=== PATIENT | female | born 1995 | race Caucasian/White ===

== ENCOUNTER 2019-08-09 20:26 | Inpatient (IN) ==
[2019-08-09] MEDS ORDERED: OXYTOCIN 30 UNITS/500 ML BAG IV PRN (21:43)
[2019-08-09] MEDS ORDERED: PENICILLIN G POTASSIUM 3 MU in DEXTROSE 5% 100 ML IV PRN (21:43)
[2019-08-09] MEDS ORDERED: BETAMETH SOD PHOS/ACETATE IA 6 MG/ML IM STA (21:43)
[2019-08-09] MEDS ORDERED: PENICILLIN G POTASSIUM 6 MU in DEXTROSE 5% 250 ML IV STA (21:43)
[2019-08-09] MEDS ORDERED: LACTATED RINGER'S 1,000 ML IV PRN (21:43)
--- NOTE | 2019-08-09 22:03 | History & Physical Report ---
Date of Service August 09, 2019 Assessment & Plan (1) premature rupture of membranes (PPROM) delivered, current hospita lization: IV fluids, EFM/toco. GBS unknown, therefore start PCN. <37w gestation, give first dose of celestone. I discussed case with on-call pairer odds; he recommends transfer to a tertiary center, as he feels the baby would likely need to be transferred to a NICU after delivery. In an effort to avoid separation of baby and mom after delivery, will transfer to [place]. I discussed with MFM Dr Hickey and OB Dr Campbell at [facility]. Patient needs COVID rapid swab prior to [place] transfer, per [place] request. She screened negative for symptoms/exposure. Patient is agreeable. Consent discussed. History of Present Illness Chief Complaint: rupture of membranes Primary Care Provider: Renetta York MD 23yo @ 35 03/23 with large gush of water at 7pm tonight. No bleeding, not feeling contractions. + movement. complicated by: Rh negative (rec'd Rhogam at 28w visit 06/23/19), and anatomy scan concerning for amniotic band. She was referred to MFM at [facility] due to her insurance coverage, and found no amniotic band and normal anatomy. Recommendation was for a 32w growth ultrasound, and at that scan fetus was 17th %ile for size. No recent intercourse, feeling well other than leaking of fluid. No further complaints. Allergies Allergy/AdvReac Type Severity Reaction Status Date / Time Cephalosporins Allergy Hives Verified 08/09/19 20:36 Home Medications Home Medications Medication Instructions Recorded Confirmed Type prenat.vits,silvano,wqy-bdup-xhfrj 1 tab PO DAILY 01/26/19 08/09/19 History Patient History Medical History Hx of migraines Varicella vaccine Surgical History S/P tonsillectomy S/P wisdom tooth extraction Family History Grandmother (Maternal) Asthma Grandfather (Maternal) Diabetes Hypertension Heart disease Mother Hypertension Dyslipidemia Kidney stones Grandmother (Paternal) Lung cancer Social History Preferred Language: Swedish Communication Ability: Effective [place] [employer]merer Required: No Beliefs That Will Affect Care: None marital status: marital status details: Tee(24) [phone] Current Living Situation: Spouse Current Living Situation Comment: lives with spouse current occupational status: employed current occupation: Crisis counselor @ [employer] Other Information That Helps Us Care for You: No Feels Safe at Home: Yes Safety Concerns: Feels Safe At This Time Smoking Status: Never smoker Hx Alcohol Use: No Hx Substance Use: No Review of Systems All systems reviewed & are unremarkable except as noted in HPI & below Physical Exam Physical Exam: Sterile speculum exam: +nitrizine, +ferning, +valsalva. Neg pooling. Positive Amnisure. Sterile vaginal exam: /-2 FHT Cat 1 [place] rare ctx Limited bedside ultrasound: cephalic, limited amt of amniotic fluid, anterior placenta, + movement, +cardiac activity Constitutional: WD/WN, vitals as above Respiratory: normal respiratory effort, lungs clear to auscultation no respiratory distress Cardiovascular: Rate/Rhythm: regular rate and regular rhythm Gastrointestinal (Abdomen): Inspection/Auscultation: abdomen normal to inspection Percussion/Palpation: abdomen soft; abdomen nontender Gravid. No s/s chorio or abruption. Skin: no rashes, warm and dry Psychiatric: A+Ox3, euthymic affect Results & Data Vital Signs (Past 12 Hours) Vital Signs Temp Pulse Resp BP 08/09/19 20:32 37.2 C 102 H 16 121/67 Coding Level of Care Code 30225 Initial Inpt Care Lvl 2 Diagnoses premature rupture of membranes (PPROM) delivered, current hospitalization O42.919
[2019-08-09 22:23] LABS: Hematocrit (blood only) 34.6 % (37-47); Hemoglobin 11.8 g/dL (12.0-16.0); Mean Corpuscular Hemoglobin 30.7 pg (25-34); Mean Corpuscular Volume 90.1 fL (80-100); Mean Platelet Volume 10.6 fL (7.4-10.4); Platelet Count 217 K/uL (130-400); RDW Coefficient of Variation 13.1 % (11.5-14.5); RDW Standard Deviation 42.6 fL (36.4-46.3); Red Blood Count 3.84 M/uL (4.2-5.4); White Blood Count 12.49 K/uL (4.8-10.8)
[2019-08-09 22:26] LABS: Mean Corpuscular Hgb Conc 34.1 g/dL (32-36)
--- NOTE | 2019-08-19 10:40 | Discharge Summary ---
Date of Service August 19, 2019 Admission HPI Per Admitting Provider 23yo @ 35 03/23 with large gush of water at 7pm tonight. No bleeding, not feeling contractions. + movement. complicated by: Rh negative (rec'd Rhogam at 28w visit 06/23/19), and anatomy scan concerning for amniotic band. She was referred to [facility] due to her insurance coverage, and found no amniotic band and normal anatomy. Recommendation was for a 32w growth ultrasound, and at that scan fetus was 17th %ile for size. No recent intercourse, feeling well other than leaking of fluid. No further complaints. Admission Exam (Per Admitting) Constitutional WD/WN, vitals as above Respiratory normal respiratory effort, lungs clear to auscultation no respiratory distress Cardiovascular Rate/Rhythm: regular rate and regular rhythm Gastrointestinal (Abdomen) Inspection/Auscultation: abdomen normal to inspection Percussion/Palpation: abdomen soft; abdomen nontender Skin no rashes, warm and dry Psychiatric A+Ox3, euthymic affect Hospital Course (1) premature rupture of membranes (PPROM) delivered, current hospitalization: IV fluids, EFM/toco. GBS unknown, therefore start PCN. <37w gestation, give first dose of celestone. I discussed case with on-call edger operator; he recommends transfer to a tertiary center, as he feels the baby would likely need to be transferred to a NICU after delivery. In an effort to avoid separation of baby and mom after delivery, will transfer to [place]. I discussed with MFM Dr Hickey and OB Dr Campbell at [facility]. Patient needs COVID rapid swab prior to [place] transfer, per [place] request. She screened negative for symptoms/exposure. Patient is agreeable. Consent discussed. Coding Level of Care Code None Diagnoses premature rupture of membranes (PPROM) delivered, current hospitalization O42.919
== END 2019-08-10 01:09 | disposition short-term general hospital (02) | DRG 832 ==
LOC: OPB 20:26 → 4S1 20:27